=== PATIENT | female | born 1970 | race Caucasian/White ===

== ENCOUNTER 2019-12-14 11:42 | Emergency (ER) | payer BC, SELFPAY ==
[2019-12-14 12:44] VITALS: BP 132/95; PULSE 109; RESP 14; TEMP 36.9; O2SAT 87; BMI 24.3
--- NOTE | 2019-12-14 12:50 | XR_ITS ---
PROCEDURE: XR CHEST 2V CLINICAL HISTORY: short of breath, low o2 sat COMPARISON: No exams were available for comparison FINDINGS: The cardiomediastinal silhouette and pulmonary vascularity are within normal limits. Nodular opacity noted along the left lung base and may be due to nipple shadow. There is a ill-defined opacity in the right midlung overlying the 4th rib anteriorly. While this could be due to summation artifact, 1 cannot exclude the possibility of a pulmonary nodule. This measures 11 mm. Follow-up suggested. No acute bony abnormalities. IMPRESSION: Possible developing nodule right midlung. Follow-up recommended. If this persists, CT may be needed for further evaluation. Dictated by: Alf Felipe MD 12/14/2019 14:39 Alf Felipe MD in [place] 12/14/2019 14:39
--- NOTE | 2019-12-14 12:50 | HMH.EDUTC ---
[facility] Disposition Clinical Impression: Asthma exacerbation Qualifiers: Asthma severity: unspecified severity Asthma persistence: unspecified Qualified Code(s): J45.901 - Unspecified asthma with (acute) exacerbation Disposition: Home, Self-Care Condition on Discharge: Good Instructions: DI for Asthma -- Adult Additional Instructions: Drink plenty of fluids. Take tylenol or ibuprofen for pain or fever. Take the medications as directed. Follow up with your regular doctor. GO TO THE ER FOR ANY WORSENING SYMPTOMS FOLLOW THE DIRECTIONS ON THE COVID-19 HAND OUT THAT WE GAVE YOU REGARDING SELF-ISOLATION UNTIL YOU KNOW YOUR COVID-19 RESULTS Prescriptions: Brompheniramine/Pseudoephed/Dm [Bromfed Dm Cough Syrup] 5 ml PO Q6HP PRN #240 syrup PRN Reason: Cough Transmission Status: Received by [employer] # methylPREDNISolone [Medrol] 4 mg PO DIRECTED 6 Days #21 tab.ds.pk Transmission Status: Received by [employer] # Azithromycin [Z-Jose 250mg Tab*] 250 mg PO UD DOSE PK #6 tab Transmission Status: Received by [employer] # Referrals: Anthony Leyva MD [Primary Care Provider] - Forms: Work/School Release Time of Disposition: 13:45 Medical Decision Making - Medical Records Medical records reviewed: No: I reviewed the patient's medical records. - Michael Inquiry Pt receiving controlled substance: No Vital Signs: 12/14/19 12:44 12/14/19 13:25 12/14/19 13:54 Temperature 98.4 F 98.4 F Temperature Source Oral Pulse Rate 83 Pulse Rate [Right Brachial] 109 H 83 Respiratory Rate 14 21 21 Blood Pressure 132/95 H Blood Pressure [Right Arm] 132/95 H Blood Pressure Mean [Right Arm] 107 Blood Pressure Source [Right Arm] Automatic Cuff Blood Pressure Position [Right Arm] Sitting 02 Sat by Pulse Oximetry 87 L 99 Oxygen Delivery Method Room Air Room Air Orders (Tests/Meds): ED MEDICATIONS Discontinued Medications Generic Name Dose Route Start Last Admin Trade Name Freq PRN Reason Stop Dose Admin Albuterol/Ipratropium 2 puff 12/14/19 12:50 Combivent 20mcg/100mcg Respimat Inhaler IH 12/14/19 12:51 ONCE ONE Ceftriaxone Sodium 1 gm 12/14/19 12:52 12/14/19 13:26 Ceftriaxone 1gm Vial IM 12/14/19 12:53 1 gm ONCE ONE Administration Protocol Lidocaine HCl 0 ml 12/14/19 12:52 12/14/19 13:27 Lidocaine 1% 5ml Pf Vial IM 12/14/19 12:53 2.1 ml ONCE ONE Administration Methylprednisolone Sodium Succinate 125 mg 12/14/19 12:52 12/14/19 13:27 Methylprednisolone Sod Succ 125mg Vial IM 12/14/19 12:53 125 mg ONCE ONE Administration Miscellaneous 1 unit 12/14/19 12:50 Aerochamber/Optihaler MC 12/14/19 12:51 ONCE ONE [facility] HPI - General Stated complaint: cough, drainage, soa Time Seen by Provider: 12/14/19 12:52 Mode of Arrival: Ambulatory Source of Information: Patient Limitations: No Limitations Description of Symptoms (Recalled from Triage Doc. by RN): PATIENT C/O COUGH WITH THICK, GREEN SPUTUM THAT STARTED OVER THE WEEKEND HEENT Symptoms (Recalled from RN notes): No Resp Symptoms (Recalled from RN notes): Yes Skin Symptoms (Recalled from RN notes): No MS Symptoms (Recalled from RN notes): No Functional Status (Recalled from RN notes): WNL - History of Present Illness Provider Complaint: She c/o shortness of breath for the past 2 days. She denies any history of copd. She does have a history of asthma. - Related Data Previous Rx's Medication Instructions Recorded Amoxicillin [Amoxicillin 500mg 500 mg PO TID #30 cap 01/06/19 Cap] Fluticasone Propionate [Flonase 2 spr NS DAILY #1 bottle 01/06/19 50mcg nasal spray 16gm] Azithromycin [Z-Jose 250mg Tab*] 250 mg PO UD DOSE PK #6 tab 12/14/19 Brompheniramine/Pseudoephed/Dm 5 ml PO Q6HP PRN #240 syrup 12/14/19 [Bromfed Dm Cough Syrup] methylPREDNISolone [Medrol] 4 mg PO DIRECTED 6 Days #21 12/14/19 tab.ds.pk Al
[2019-12-14 13:25] VITALS: PULSE 83; RESP 21; O2SAT 99
[2019-12-14 13:54] VITALS: BP 132/95; PULSE 83; RESP 21; TEMP 36.9; O2SAT 99
== END 2019-12-14 14:00 | disposition home or self-care (01) ==
PROVIDERS: Emergency Provider Nurse Practitioner Family; PCP Emergency Medicine
DX: J45.901 Unspecified asthma with (acute) exacerbation (principal); Z20.828 Contact with and (suspected) exposure to other viral communicable diseases
CPT/HCPCS: 71046; 96372; 99203; U0003

== ENCOUNTER 2019-12-28 00:13 | Observation (INO) | payer BC, SELFPAY ==
[2019-12-28] VITALS (20 sets, daily range): BP systolic 105–141; BP diastolic 70–101; PULSE 98–133; RESP 15–24; TEMP 36.7–37; O2SAT 87–98; BMI 24.9; BMI 24.5; BMI 24.3
--- NOTE | 2019-12-28 00:34 | XR_ITS ---
PROCEDURE: XR CHEST 2V CLINICAL HISTORY: soa Shortness of air, bronchitis COMPARISON: CR XR CHEST 2V from 12/14/2019 FINDINGS: The cardiomediastinal silhouette and pulmonary vascularity are within normal limits. No lobar consolidation or collapse. There is a 4 mm opacity in the left lung base laterally not significantly changed. Previously noted 11 mm opacity in the right midlung laterally is less apparent unchanged and may have been due to a summation artifact. No acute bony abnormalities. IMPRESSION: No acute findings. Dictated by: Alf Felipe MD 12/29/2019 05:51 Alf Felipe MD in [place] 12/29/2019 05:51
[2019-12-28 00:39] LABS: ABG Base Excess 3.1 mmol/L (-2.4-2.3); ABG HCO3 29.2 mmhg (22.0-26.0); ABG Oxygen Saturation 96 % (90-100); ABG PH 7.32 mmol/L (7.35-7.45); ABG PO2 79.7 mmhg (80-100); ABG TCO2 30.9 mmhg (23-27)
--- NOTE | 2019-12-28 00:39 | ECG_ITS ---
APPROVED REPORT Exam: Resting ECG HR:120 bpm ECG Measurements Heart Rate 120 AXES HI 116 P 89 QRSd 88 QRS 88 QT 312 T 2 QTc 440 Conclusion Sinus tachycardia with fusion complexes Right atrial enlargement ST & T wave abnormality, consider inferior ischemia Abnormal ECG Electronically signed by : Gibran Hernandez, 12/28/2019 15:08:19
[2019-12-28 00:40] LABS: Allen's Test Y; Oxygen 2 %; Source R/R
[2019-12-28 00:41] LABS: ABG PCO2 57.5 mmhg (35.0-45.0)
[2019-12-28 00:42] LABS: Basophils # 0.1 K/mm3 (0-0.2); Basophils % 0.5 % (0.1-2.0); Eosinophils # 1.3 K/mm3 (0.0-0.4); Eosinophils % 10.7 % (0.1-12.0); Hematocrit 53.3 % (37.0-47.0); Hemoglobin 17.1 g/dL (12.2-16.2); Lymphocytes # 1.9 K/mm3 (0.7-4.5); Lymphocytes % 15.1 % (10-50); Mean Corpuscular HGB Conc 32.1 g/dL (31.8-35.4); Mean Corpuscular Hemoglobin 30.3 pg (27.0-31.2); Mean Corpuscular Volume 94.4 fl (81-99); Mean Platelet Volume 7.6 fl (7.4-10.4); Monocytes # 0.6 K/mm3 (0.1-1.0); Monocytes % 4.6 % (1.7-9.3); Neutrophils # 8.5 K/mm3 (1.8-7.8); Neutrophils % 69.1 % (37.0-80.0); Platelet Count 352 K/mm3 (142-424); Red Blood Count 5.65 M/mm3 (4.20-5.40); Red Cell Distribution Width 13.6 % (11.5-17.5); White Blood Count 12.3 K/mm3 (4.8-10.8)
[2019-12-28 00:45] LABS: Alanine Aminotransferase 32 U/L (12-78); Albumin Level 4.7 g/dl (3.5-5.0); Albumin/Globulin Ratio 1.3 (1.1-1.8); Alkaline Phosphatase 70 U/L (38-126); Anion Gap 14.8 mEq/L (5-15); Aspartate Amino Transferase 39 U/L (14-36); Bilirubin,Total 0.6 mg/dl (0.2-1.3); Blood Urea Nitrogen 10 mg/dl (7-17); Calcium 9.9 mg/dl (8.4-10.2); Carbon Dioxide 31 mmol/L (22.0-30.0); Chloride 100 mmol/L (98-107); Creatinine Clearance Estimated 66 mL/min (50-200); Estimated Glomerular Filt Rate 53 ml/min (>60); GFR (African American) 64 ML/MIN (>60); Globulin 3.5 g/dL (1.3-3.2); Glucose 124 mg/dl (74-100); Potassium 3.8 mmoL/L (3.5-5.1); Sodium 142 mmol/L (136-145); Total Protein,Serum 8.2 g/dl (6.3-8.2)
--- NOTE | 2019-12-28 00:46 | HMH.EDSOB ---
ED Disposition Clinical Impression: Asthma exacerbation Qualifiers: Asthma severity: severe Asthma persistence: unspecified Qualified Code(s): J45.901 - Unspecified asthma with (acute) exacerbation Disposition: Admitted as Observation Condition on Discharge: Good Referrals: Anthony Leyva MD [Primary Care Provider] - - Critical Care Critical Care Time: No Attestation: On 12/28/19, the high probability of a clinically significant, sudden or life threatening deterioration of the following system(s) required my full and direct attention, intervention and personal management. The time I documented below is in addition to time spent performing reported procedures but includes the following listed in this critical care notation. Medical Decision Making - Medical Records Medical records reviewed: Yes: I reviewed the patient's medical records. - Michael Inquiry Pt receiving controlled substance: No Vital Signs: 12/28/19 00:26 12/28/19 00:44 12/28/19 01:25 Temperature 98.6 F Temperature Source Oral Pulse Rate Pulse Rate [Right] 133 H 116 H 111 H Respiratory Rate 20 20 18 Blood Pressure [Right Arm] 141/95 H 133/101 H 129/83 Blood Pressure Mean [Right Arm] 110 111 98 Blood Pressure Source [Right Arm] Automatic Cuff Blood Pressure Position [Right Arm] Supine 02 Sat by Pulse Oximetry 89 L 97 98 Oxygen Delivery Method Room Air Nasal Cannula Nasal Cannula Oxygen Flow Rate (LPM) 2 2 12/28/19 01:28 12/28/19 02:00 12/28/19 02:11 Temperature Temperature Source Pulse Rate Pulse Rate [Right] 107 H 110 H 101 H Respiratory Rate 18 20 18 Blood Pressure [Right Arm] 132/94 H 119/91 H Blood Pressure Mean [Right Arm] 106 100 Blood Pressure Source [Right Arm] Blood Pressure Position [Right Arm] 02 Sat by Pulse Oximetry 91 L 89 L 96 Oxygen Delivery Method Room Air Room Air Nasal Cannula Oxygen Flow Rate (LPM) 2 12/28/19 02:15 12/28/19 02:16 Temperature Temperature Source Pulse Rate 109 H 110 H Pulse Rate [Right] Respiratory Rate Blood Pressure [Right Arm] Blood Pressure Mean [Right Arm] Blood Pressure Source [Right Arm] Blood Pressure Position [Right Arm] 02 Sat by Pulse Oximetry Oxygen Delivery Method Oxygen Flow Rate (LPM) - Lab Data Lab results reviewed: Yes: I reviewed the patient's lab results. Lab Results 12/28/19 00:30: WBC 12.3 H, RBC 5.65 H, Hgb 17.1 H, Hct 53.3 H, MCV 94.4, MCH 30.3, MCHC 32.1, RDW 13.6, Plt Count 352, MPV 7.6, Neut % (Auto) 69.1, Lymph % (Auto) 15.1, [place] % (Auto) 4.6, Eos % (Auto) 10.7, Baso % (Auto) 0.5, Neut # (Auto) 8.5 H, Lymph # (Auto) 1.9, [place] # (Auto) 0.6, Eos # (Auto) 1.3 H, Baso # (Auto) 0.1, ESR 5 12/28/19 00:30: Sodium 142, Potassium 3.8, Chloride 100, Carbon Dioxide 31 H, Anion Gap 14.8, BUN 10, Creatinine 1.10 H, Estimated Creat Clear 66, Estimated GFR 53 L, Est GFR ( Amer) 64, Glucose 124 H, Calcium 9.9, Total Bilirubin 0.6, AST 39 H, ALT 32, Alkaline Phosphatase 70, Troponin I < 0.01, C-Reactive Protein 0.3, Total Protein 8.2, Albumin 4.7, Globulin 3.5 H, Albumin/Globulin Ratio 1.3 12/28/19 00:30: SARS-CoV-2 IgG Ab (Rapid) Negative, SARS-CoV-2 IgM Ab (Rapid) Negative 12/28/19 00:38: Specimen Source R/r, O2 % 2, ABG pH 7.32 L, ABG pCO2 57.5 H, ABG pO2 79.7 L, ABG HCO3 29.2 H, ABG Total CO2 30.9 H, ABG O2 Saturation 96, ABG Base Excess 3.1 H, Alf Test Y Result diagrams: 12/28/19 00:30 12/28/19 00:30 Orders (Tests/Meds): ED MEDICATIONS Generic Name Dose Route Start Last Admin Trade Name Freq PRN Reason Stop Dose Admin Sodium Chloride 1,000 mls @ 999 mls/hr 12/28/19 00:45 12/28/19 00:35 Sod Chlor 0.9% 1000ml Bag IV 12/28/19 01:45 999 mls/hr .Q1H1M LARS Administration Discontinued Medications Generic Name Dose Route Start Last Admin Trade Name Freq PRN Reason Stop Dose Admin Albuterol/Ipratropium 3 ml 12/28/19 00:34 12/28/19 00:35 Albuterol/Ipratropium 3 Ml Neb IH 12/28/19 00:35
[2019-12-28 01:02] LABS: C-Reactive Protein 0.3 mg/L (0-4)
[2019-12-28 01:09] LABS: Erythrocyte Sedimentation Rate 5 mm/hr (0-20)
[2019-12-28 01:16] LABS: Troponin I < 0.01 ng/ml (0.00-0.034)
--- NOTE | 2019-12-28 01:26 | PC.NURSE ---
Pt has made improvements, but continues to have inspiratory wheezing throughout. O2 turned off at this time to monitor pt's room air O2 sats. Pt declines admission.
[2019-12-28 01:31] LABS: Coronavirus 19 IgG Antibody Negative (Negative); Coronavirus 19 IgM Antibody Negative (Negative)
--- NOTE | 2019-12-28 02:00 | PC.NURSE ---
Pt's room air O2 sats 89% pt placed back on 2 L/M N/C
--- NOTE | 2019-12-28 02:18 | PC.NURSE ---
Pt agrees to stay as an inpatient
--- NOTE | 2019-12-28 02:40 | PC.NURSE ---
PT ARRIVED ON FLOOR VIA WHEELCHAIR AT 0240. WILMA
[2019-12-28 04:03] LABS: Magnesium 1.7 mg/dl (1.6-2.3)
[2019-12-28 04:20] LABS: Troponin I < 0.01 ng/ml (0.00-0.034)
--- NOTE | 2019-12-28 07:27 | P.CONPHA_ITS ---
[facility] Pharm[facility] VTE Monitoring - Patient Demographics Admission date: 12/28/19 Report Date: 12/28/19 Time: 07:27 Allergies/Adverse Reactions: Patient Allergies No Known Allergies Allergy (Verified 01/06/19 13:25) Height: 1.63 m Weight: 64.637 kg Patient Problems: Current Active Problems Asthma exacerbation (Acute) - VTE Risk Labs: VTE Related Lab Results Hgb 17.1 g/dL (12.2-16.2) H 12/28/19 00:30 Hct 53.3 % (37.0-47.0) H 12/28/19 00:30 Plt Count 352 K/mm3 (142-424) 12/28/19 00:30 BUN 10 mg/dl (7-17) 12/28/19 00:30 Creatinine 1.10 mg/dl (0.52-1.04) H 12/28/19 00:30 Estimated Creat Clear 66 mL/min (50-200) 12/28/19 00:30 Was VTE Risk Assessment Performed: Yes VTE Score: 2 VTE Risk Level: Low Risk Clinical Trial Participant: No - Prophylaxis VTE Prophylaxis Ordered?: Yes Types of VTE Prophylaxis: TEDS Knee High
[2019-12-28 07:38] LABS: Troponin I < 0.01 ng/ml (0.00-0.034)
--- NOTE | 2019-12-28 10:01 | SW/DCPLANNER ---
Addendum entered by Amada Miranda 12/29/19 09:54: Patients room air is at 94% and home O2 is not needed at this time. Nebulizer machine was delivered by [facility] yesterday. Patient will discharge home later today. Original Note: This patient will need a nebulizer machine ordered at time of discharge. Once patient information is in computer along with Pulmonology consult is completed patient information will be faxed to [facility]. Patient will discharge home later today.
--- NOTE | 2019-12-28 10:57 | HMH.PULMCON ---
*Admission Date: 12/28/19 *Reason for consult:: Asthma exacerbation *History of present illness: This is a 49-year-old female with previous diagnosis of asthma when she was 27 years old, use Advair every day with albuterol as needed recently moved from [facility] where after which her symptoms completely resolved and wheezing using albuterol as needed presented to the hospital with acute worsening shortness of breath associated with significant wheezing. Patient is unclear of any triggers that exacerbated her asthma. However she states that they are close their windows and started their heating that which she thinks prompted her exacerbation.. Patient presented to the ER previous with asthma exacerbation but was never been admitted or never been intubated secondary to asthma exacerbations. Significant history of seasonal allergies [facility] History Medical History: Denies:: Diabetes Mellitus Type 1, Diabetes Mellitus Type 2, Home Oxygen *Have you ever received a pneumonia vaccine?: No *Have you received a flu vaccine this season?: No Laterality Cases: Left: Other Other Surgeries: Yes: Other (left nephrectomy) - *Social History Smoking Status: Never smoker Alcohol Intake: never Alcohol Intake Frequency:: other Substance Use Type: other *Occupational Status:: employed Housing: house Household Members: spouse, children *Travel in the last 8 weeks: None Family Hx:: Other ROS - Cons Denies chills, Denies fatigue, Denies fever(s), Denies poor appetite, Denies weight loss - Eyes Denies dry eyes, Denies sensitivity to light - ENT Reports nasal congestion, Reports post nasal drip, Denies dizziness, Denies facial pain, Denies pain with swallowing, Denies tongue swelling - Card Reports shortness of breath with activity, Denies leg swelling - Resp Respiratory: Yes shortness of breath, Yes chest congestion, No dyspnea, Yes dyspnea on exertion, No excessive phlegm production, No coughing up blood, No cough with sputum production, No pain with breathing, No stridor - GI Gastrointestingal: Denies: abdominal pain, dysphagia, nausea, reflux, vomiting - [place] Musculoskeletal: Denies neck pain, Denies small joint pain in the hands - Psych Denies confusion, Denies depression Meds Home Medications Medication Instructions Recorded Confirmed Type Albuterol Sulfate [Albuterol 1 puff IH NEEDED PRN 12/28/19 12/28/19 History Sulfate Hfa] Allergies Allergy/AdvReac Type Severity Reaction Status Date / Time No Known Allergies Allergy Verified 01/06/19 13:25 Exam Radiology reports for Last 24 Hours: Chest x-ray is clear with no acute pulmonary infiltrates. The previously noted right middle lobe possible pulmonary nodule is not clearly appreciated on this chest x-ray - Constitutional Constitutional:: no acute distress, comfortable, healthy appearing, cooperative - HENMT Exam HENMT: normocephalic, atraumatic, head normal to inspection, face & sinuses non-tender, oral mucosa normal, moist mucous membranes, posterior oropharanx norm - Eye Exam Eyes:: normal appearance both eyes and related structures, eyelids normal, normal conjunctiva, normal sclera - Neck Exam Neck:: normal visual inspection, thyroid normal, no lymphadenopathy - Respiratory Exam Respiratory:: able to speak in complete sentences, no respiratory distress, normal respiratory effort, wheezing - Cardiovascular Exam Cardiac:: regular rhythm, S1, S2 - GI Exam GI:: soft, no hepatosplenomegaly, normal to inspection, normoactive bowel sounds, no tenderness - Skin Exam Skin: no rash, normal elastacity, no lesions, normal turgor - Neurological Exam Neurological: alert, awake, oriented X3 - Extremities Exam Extremities: no cyanosis, no clubbing, no edema - Psychiatric Exam Psychiatric: normal affect, appearance grossly normal, affect normal, attitude normal, no homicidal ideation, no suicidal ideation Internal Medicine - CN: Reslt - Labs
--- NOTE | 2019-12-28 14:58 | PC.NURSE ---
Addendum entered by Amada Miranda 12/28/19 15:16: Patient information and order has been faxed to [facility] for nebulizer machine. Veronica from [facility] has called back stating that patient information is reviewed and they will deliver nebulizer to patients room today. Original Note: Have called in RE to pt being d/cd and awaiting cb at this time. Spoke with Nakul at 1455. Dr. Leyva is going to look at her info now. Pt is alert and oriented and able to make needs known. Has been up ambulating to bathroom. No complaints, just wanting to know when she is going to be d/c. Lungs cta. BS x 4. S1,S2. CB in reach
--- NOTE | 2019-12-28 15:43 | PC.NURSE ---
PT WEIGHT TODAY 144.2. BED SCALE #[id number]
--- NOTE | 2019-12-28 15:44 | PC.NURSE ---
Spoke with Dr. Leyva and pt has agreed to stay another night r/t 02 being 90%, hr tachy at 111, and RR 24. Pt denies soa at this time. Mx continues. Have called and spoke with clinic pharm and asked if Breo was covered. Awaiting response at this time.
--- NOTE | 2019-12-28 16:00 | PC.NURSE ---
Addendum entered by David Zepeda RN 12/28/19 16:04: Advair -$ 71 symbicort Original Note: Spoke with Heladio in RE to copay on inhalers and advaid has a 67$ copay, Breo was $71, and $ symbicort. There ar no offers for discounts on these.
--- NOTE | 2019-12-28 17:11 | HMH.HP ---
*Admission Date: 12/28/19 *Chief complaint: soa *History of present illness: 49-year-old female with History of asthma when she was 27 years old, use Advair every day with albuterol as needed recently moved back from [facility]. [place] she stopped taking all of her medications, but recently moved back. Patient states 3 using albuterol as needed presented to the hospital with acute worsening shortness of breath associated with significant wheezing and soa. Patient admitted for asthma. Pulmonary and cardiology consults. [facility] History I have reviewed the patient's past medical history: Yes Medical History: Denies:: Diabetes Mellitus Type 1, Diabetes Mellitus Type 2, Home Oxygen *Have you ever received a pneumonia vaccine?: No *Have you received a flu vaccine this season?: No Laterality Cases: Left: Other Other Surgeries: Yes: Other (left nephrectomy) - *Social History Smoking Status: Never smoker Alcohol Intake: never *Occupational Status:: employed Housing: house Household Members: spouse, children *Travel in the last 8 weeks: None Family Hx:: No significant family history, Asthma Review of Systems - Review of Systems Review of systems:: pertinent systems reviewed and negative unless documented below - Constitutional Denies body ache(s), Denies fever(s) - Eyes Denies change in vision - ENT Denies difficulty swallowing - *Cardiovascular Reports chest pain with activity, Reports shortness of breath - *Respiratory Reports shortness of breath, Reports shortness of breath with activity, Denies chest congestion - *Gastrointestinal Denies nausea, Denies vomiting - *Genitourinary Denies urinary urgency - *Musculoskeletal Denies joint pain - Integumentary/Breasts Denies rash - *Neurologic Denies confusion, Denies dizziness, Denies localized weakness, Denies seizure-like activity - Psychiatric Denies anxiety - Endocrine Denies flushing - Hematologic/Lymphatic Denies enlarged lymph nodes - Allergic/Immunologic Denies lip swelling Meds Home Medications Medication Instructions Recorded Confirmed Type Albuterol Sulfate [Albuterol 1 puff IH NEEDED PRN 12/28/19 12/28/19 History Sulfate Hfa] Allergies Allergy/AdvReac Type Severity Reaction Status Date / Time No Known Allergies Allergy Verified 01/06/19 13:25 Exam Vital signs and Labs for Last 24 Hours: Temp Pulse Resp BP Pulse Ox 98.5 F 111 H 24 134/80 90 L 12/28/19 15:40 12/28/19 15:40 12/28/19 15:40 12/28/19 15:40 12/28/19 15:40 Laboratory Results - last 24 hr 12/28/19 00:30: WBC 12.3 H, RBC 5.65 H, Hgb 17.1 H, Hct 53.3 H, MCV 94.4, MCH 30.3, MCHC 32.1, RDW 13.6, Plt Count 352, MPV 7.6, Neut % (Auto) 69.1, Lymph % (Auto) 15.1, [place] % (Auto) 4.6, Eos % (Auto) 10.7, Baso % (Auto) 0.5, Neut # (Auto) 8.5 H, Lymph # (Auto) 1.9, [place] # (Auto) 0.6, Eos # (Auto) 1.3 H, Baso # (Auto) 0.1, ESR 5 12/28/19 00:30: Sodium 142, Potassium 3.8, Chloride 100, Carbon Dioxide 31 H, Anion Gap 14.8, BUN 10, Creatinine 1.10 H, Estimated Creat Clear 66, Estimated GFR 53 L, Est GFR ( Amer) 64, Glucose 124 H, Calcium 9.9, Total Bilirubin 0.6, AST 39 H, ALT 32, Alkaline Phosphatase 70, Troponin I < 0.01, C-Reactive Protein 0.3, Total Protein 8.2, Albumin 4.7, Globulin 3.5 H, Albumin/Globulin Ratio 1.3 12/28/19 00:30: SARS-CoV-2 IgG Ab (Rapid) Negative, SARS-CoV-2 IgM Ab (Rapid) Negative 12/28/19 00:38: Specimen Source R/r, O2 % 2, ABG pH 7.32 L, ABG pCO2 57.5 H, ABG pO2 79.7 L, ABG HCO3 29.2 H, ABG Total CO2 30.9 H, ABG O2 Saturation 96, ABG Base Excess 3.1 H, Alf Test Y 12/28/19 03:43: Magnesium 1.7, Troponin I < 0.01 12/28/19 06:55: Troponin I < 0.01 I & O for Last 24 hours: Intake & Output 10/1712/27/19 12/28/19 12/29/19 11:59 11:59 11:59 11:59 Intake Total 1360 / 1360 930 / 930 Output Total 800 / 800 Balance 1360 / 1360 130 / 130 Weight 142 lb 8 oz
--- NOTE | 2019-12-28 19:13 | PC.NURSE ---
report given to melodie
--- NOTE | 2019-12-29 03:42 | PC.NURSE ---
Pt has slept well this shift. Pt is A&Ox4. Pt's lung sounds are diminished t/o with expiratory wheezes. Pt continues to tolerate 2 L NC with 02 sat's in the mid 90's. Bowel sounds heard in all 4 quads. Pt has had adequate urine output this shift. Urine is clear and light yellow in appearance. Pt has ambulated to the restroom independently with a satisfactory gait and balance. No other acute changes or complaints at this time. Call light is within reach. Will continue to monitor.
[2019-12-29 04:00] VITALS: BP 115/76; PULSE 73; RESP 16; TEMP 36.7; O2SAT 98
[2019-12-29 05:09] VITALS: BMI 25.0
[2019-12-29 06:11] VITALS: PULSE 74; PULSE 78; O2SAT 93
[2019-12-29 06:29] LABS: Eosinophils % 0.1 % (0.1-12.0); Hematocrit 42.6 % (37.0-47.0); Hemoglobin 13.8 g/dL (12.2-16.2); Lymphocytes # 0.6 K/mm3 (0.7-4.5); Lymphocytes % 3.4 % (10-50); Mean Corpuscular HGB Conc 32.4 g/dL (31.8-35.4); Mean Corpuscular Volume 95.7 fl (81-99); Mean Platelet Volume 7.8 fl (7.4-10.4); Monocytes # 0.6 K/mm3 (0.1-1.0); Monocytes % 3.1 % (1.7-9.3); Neutrophils # 16.5 K/mm3 (1.8-7.8); Neutrophils % 93.3 % (37.0-80.0); Platelet Count 313 K/mm3 (142-424); Red Blood Count 4.45 M/mm3 (4.20-5.40); Red Cell Distribution Width 13.9 % (11.5-17.5); White Blood Count 17.7 K/mm3 (4.8-10.8)
[2019-12-29 06:53] LABS: Chloride 104 mmol/L (98-107); Potassium 4.6 mmoL/L (3.5-5.1); Sodium 139 mmol/L (136-145)
[2019-12-29 06:54] LABS: MANUAL DIFFERENTIAL MANUAL DIFFERENTIAL (MANUAL DIFF)
[2019-12-29 06:56] LABS: Anion Gap 11.6 mEq/L (5-15); Blood Urea Nitrogen 15 mg/dl (7-17); Calcium 9.1 mg/dl (8.4-10.2); Carbon Dioxide 28 mmol/L (22.0-30.0); Creatinine Clearance Estimated 73 mL/min (50-200); Estimated Glomerular Filt Rate 59 ml/min (>60); GFR (African American) 72 ML/MIN (>60); Glucose 130 mg/dl (74-100)
[2019-12-29 07:46] VITALS: BP 133/74; PULSE 80; RESP 17; TEMP 36.7; O2SAT 94
[2019-12-29 08:10] LABS: Lymphocytes % 7 % (10-50); Monocytes % 3 % (2-9); Neutrophils % 90 % (42-76); Platelet Estimate Normal; RBC Morphology Normal; Total Cells Counted 100
--- NOTE | 2019-12-29 08:49 | [facility].DCSUM ---
General - General Admission date:: 12/28/19 Discharge date: 12/29/19 HPI HPI: 49-year-old female with History of asthma when she was 27 years old, use Advair every day with albuterol as needed recently moved back from [facility]. Patient [place] she stopped taking all of her medications, but recently moved back. Patient states 3 using albuterol as needed presented to the hospital with acute worsening shortness of breath associated with significant wheezing and soa. Patient admitted for asthma. Pulmonary and cardiology consults. Hospital Course Hospital Course: 49-year-old female with History of asthma when she was 27 years old, use Advair every day with albuterol as needed recently moved back from [facility]. Patient states [place] and when she moved there she stopped taking all of her medications, but recently moved back. Patient states 3 using albuterol as needed presented to the hospital with acute worsening shortness of breath associated with significant wheezing and soa. Patient admitted for asthma. Pulmonary and cardiology consults. 12/28/19 CXR: FINDINGS: The cardiomediastinal silhouette and pulmonary vascularity are within normal limits. No lobar consolidation or collapse. There is a 4 mm opacity in the left lung base laterally not significantly changed. Previously noted 11 mm opacity in the right midlung laterally is less apparent unchanged and may have been due to a summation artifact. No acute bony abnormalities. IMPRESSION: No acute findings Dictated by: [facility] has seen and Rec: Plan: -Levofloxacin for a total of 5 days -Continue DuoNebs every 6 hours as needed along with initiation of Budesonide every 12 while inpatient -Can be discharged from pulmonary stand point on LABA + ICS combo (Breo / Advair or similar equivalent) -Wean Methylprednisolone to prednisone 40 mg daily to complete a total of 7-day course -Albuterol as needed -F/U Pulmonary clinic in 4 to 6 weeks with full PFTs and a chest x-ray PA lateral Sputum culture showing no growth at this time During her stay she has received duo nebs every 6 hours. This morning white count is 17.7 due to starting steroids yesterday, chemistries were within normal limits, SARS-Cov-2 IgG negative, SARS-Cov-2 IgM negative, and Covid-19 PCR negative currently room air oxygen saturations 94%. Discussed being discharged home she is in agreement with this 1. We will discharge home again 2. Levofloxacin 500 x 3 days 3. Prednisone 20 mg twice daily x4 days 4. Follow-up with primary care , 12/31/2019 at 11 AM 5. Follow-up with pulmonary in 4 to 6 weeks with PFTs and two-view chest x-ray Objective Vital signs: Temp Pulse Resp BP Pulse Ox 98.1 F 80 17 133/74 94 L 12/29/19 07:46 12/29/19 07:46 12/29/19 07:46 12/29/19 07:46 12/29/19 07:46 no acute distress - *Routine HEENT Exam Head: Present: normocephalic ENT: Present: mucous membranes moist - *Routine Neck Exam Present: full ROM, trachea midline. Absent: tracheal deviation - *Routine Respiratory Exam Present: CTA bilaterally. Absent: accessory muscle use - *Routine Cardiovascular Exam Present: RRR - *Routine Abdominal Exam Present: soft, normoactive bowel sounds. Absent: tenderness, firm - *Routine Extremities Exam Present: full ROM, pulses intact. Absent: clubbing, edema, calf tenderness - *Routine Skin Exam Present: intact, dry, warm. Absent: cyanosis, jaundice - *Routine Neurological Exam Present: alert, oriented X3. Absent: altered mental status - Routine Psychiatric Exam Present: normal affect, normal thought process. Absent: anxious, agitated Results Labs on day of discharge: Labs from last 24 hours 12/29/19 12/29/19 06:10 06:10 WBC 17.7 H D RBC 4.45 Hgb 13.8 Hct 42.6 MCV 95.7 MCH 31.0 MCHC 32.4 RDW 13.9 Plt Count 313 MPV 7.8 Neut % (A
--- NOTE | 2019-12-29 10:23 | P.PN_ITS ---
Internal Medicine - PN: Subj *Date: 12/29/19 *Time: 10:25 Interval history: No acute events overnight. Respiratory status remained stable. Exam - Constitutional Constitutional:: no acute distress - HENMT Exam HENMT: normocephalic, atraumatic, head normal to inspection, face & sinuses non- tender, oral mucosa normal, moist mucous membranes, posterior oropharanx norm - Eye Exam Eyes:: normal appearance both eyes and related structures, eyelids normal, normal conjunctiva, normal sclera - Neck Exam Neck:: normal visual inspection, thyroid normal, no lymphadenopathy - Respiratory Exam Respiratory:: able to speak in complete sentences, lungs clear, no respiratory distress, normal respiratory effort - Cardiovascular Exam Cardiac:: regular rhythm, S1, S2 - GI Exam GI:: soft, no hepatosplenomegaly, normoactive bowel sounds - Skin Exam Skin: no rash, normal elastacity, no lesions, normal turgor - Neurological Exam Neurological: alert, awake, oriented X3 - Extremities Exam Extremities: no cyanosis, no clubbing, no edema - Psychiatric Exam Psychiatric: normal affect, appearance grossly normal, affect normal, attitude normal, no homicidal ideation, no suicidal ideation Assessment and Plan - Assessment and plan all Dx Assessment and Plan for all problems:: #Asthma exacerbation: #Abnormal Chest x-ray with concerning right middle lobe nodule: Previous history of asthma relatively well controlled presents with acute onset shortness of breath today with significant wheezing. Auscultation today showed significant wheezing. Recently treated with azithromycin and a steroid taper for possible acute bronchitis on December 13. X-ray at the time also reported as concerning evolving right middle lobe pulmonary nodule which is not clearly appreciated on this admission chest x-ray. Never been admitted or intubated for asthma exacerbations No eosinophilia noted on CBC on this hospital admission. Patient on room air today with no acute distress. Chest is clear to auscultate with mild expiratory wheeze, wheezing significantly improved from yesterday. Patient today stated that she is usually allergic to long haired cats and she is also noticing increased mice activity in her house that might have triggered her asthma attack Plan: -Levofloxacin for a total of 5 days -Continue DuoNebs every 6 hours as needed along with initiation of Budesonide every 12 while inpatient -Can be discharged from pulmonary stand point on LABA + ICS combo (Breo / Advair or similar equivalent) -Prednisone 40 mg daily to complete a total of 7-day course -Albuterol as needed -F/U Pulmonary clinic in 4 to 6 weeks with full PFTs and a chest x-ray PA lateral Thank you for involving pulmonary in this patient care. We will continue to follow.
== END 2019-12-29 10:22 | disposition home or self-care (01) ==
LOC: ER 02:20 → 2ND 02:54
PROVIDERS: Nurse Practitioner Family; Admitting Provider Emergency Medicine; Emergency Provider Emergency Medicine; PCP Emergency Medicine; Visit Provider Emergency Medicine
DX: J45.901 Unspecified asthma with (acute) exacerbation (principal); Z79.52 Long term (current) use of systemic steroids
CPT/HCPCS: 36415; 71046; 80048; 80053; 82803; 83735; 84484; 85007; 85025; 85651; 86140; 86328; 87070; 87205; 93005; 94640; 96365; 96375; 99284; G0378

== ENCOUNTER → 2020-01-28 11:22 | Outpatient (CLI) | payer BC, SELFPAY | PROVIDERS: PCP Physician Assistant; Visit Provider Internal Medicine Pulmonary Disease | DX: J45.901 Unspecified asthma with (acute) exacerbation (principal) | CPT/HCPCS: 94060; 94726; 94729 ==

== ENCOUNTER → 2020-05-26 08:28 | Outpatient (CLI) | payer BC, SELFPAY ==
[2020-05-29 22:07] LABS: G002-IgE Bermuda Grass 1.13 kU/L (Class II); G006-IgE Timothy Grass 0.39 kU/L (Class I); I006-IgE Cockroach, German 6.32 kU/L (Class IV); Immunoglobulin E, Total 3299 IU/mL (6-495); M001-IgE Penicillium chrysogen 1.13 kU/L (Class II); M003-IgE Aspergillus fumigatus 5.73 kU/L (Class IV); M006-IgE Alternaria alternata <0.10 kU/L (Class 0); T001-IgE Maple/Box Elder 1.17 kU/L (Class II); T006-IgE Cedar, Mountain 0.54 kU/L (Class I); T007-IgE Oak, White 0.36 kU/L (Class I); T008-IgE Elm, American 0.52 kU/L (Class I); T010-IgE Walnut 2.19 kU/L (Class III); T011-IgE Maple Leaf Sycamore 0.55 kU/L (Class I); T015-IgE Ash, White 1.52 kU/L (Class III); T022-IgE Pecan, Hickory 2.43 kU/L (Class III); T070-IgE White Mulberry 0.17 kU/L (Class 0/I); W014-IgE Pigweed, Common 0.39 kU/L (Class I); W016-IgE Rough Marshelder 1.65 kU/L (Class III)
== END ==
PROVIDERS: Visit Provider Internal Medicine Pulmonary Disease
DX: R06.2 Wheezing (principal); J44.9 Chronic obstructive pulmonary disease, unspecified; J45.909 Unspecified asthma, uncomplicated
CPT/HCPCS: 36415; 82785; 86003